=== PATIENT | male | born 1975 | race American Indian/Alaskan Native ===

== ENCOUNTER 2019-11-30 08:10 | Day surgery (SDC) | payer OTHER ==
[~2019-11-30 08:10] MED LIST: IOHEXOL 300 MG/ML 50ML IV ONE
[2019-11-30] MEDS ORDERED: fentaNYL 100 MCG/2 ML INJ IV PRN (09:11)
--- NOTE | 2019-11-30 09:11 | Anesthesia Consultation ---
Anesthesia Consult and Med Hx Date of service: 11/30/19 - Airway Anesthetic Teeth Evaluation: Good ROM Head & Neck: Adequate Mental/Hyoid Distance: Adequate Mallampati Class: Class II Intubation Access Assessment: Probably Good - Pulmonary Exam CTA: Yes - Cardiac Exam Cardiac Exam: RRR - Pre-Operative Health Status ASA Pre-Surgery Classification: ASA3 Proposed Anesthetic Plan: General - Pulmonary Hx Smoking: No Hx Respiratory Symptoms: No Hx Sleep Apnea: Yes (noncompliant with CPAP) - Cardiovascular System Hx Hypertension: Yes Hx Heart Attack/AMI: No Hx Percutaneous Transluminal Coronary Angioplasty (PTCA): No Hx Cardia Arrhythmia: No - Central Nervous System CVA: No Hx Back Pain: Yes Hx Psychiatric Problems: Yes (anxiety) - Gastrointestinal Hx Gastroesophageal Reflux Disease: No - Endocrine Hx End Stage Renal Disease: Yes (last HD 11/28/2019) Hx Liver Disease: No Hx Insulin Dependent Diabetes: No Hx Non-Insulin Dependent Diabetes: No Hx Thyroid Disease: No - Other Systems Hx Obesity: No - Additional Comments Anesthesia Medical History Comments: No hx anesthetic complications.
--- NOTE | 2019-11-30 09:11 | Anesthesia Day of Surgery ---
Anesthesia Day of Surgery - Day of Surgery Patient Examined: Yes Patient H&P Reviewed: Yes Patient is NPO: Yes
[2019-11-30] MEDS ORDERED: SODIUM CHLORIDE 0.9% 1000 ML 1,000 ML IV SCH (09:15)
[2019-11-30] MEDS ORDERED: fentaNYL 100 MCG/2 ML INJ ONE (09:58)
[2019-11-30] MEDS ORDERED: LIDOCAINE MPF (2%) 20 MG/1 ML VIAL 5 ML ONE (09:58)
[2019-11-30] MEDS ORDERED: PROPOFOL 200 MG/20 ML VIAL IV ONE (09:59)
[2019-11-30] MEDS ORDERED: ceFAZolin/NS 1 GM/50 ML 1 GM/50 ML BAG IV NR (10:00)
[2019-11-30] MEDS ORDERED: IOHEXOL 300 MG/ML 50ML IV ONE (11:00)
[2019-11-30] MEDS ORDERED: ONDANSETRON 4 MG/2 ML INJ ONE (11:11)
--- NOTE | 2019-11-30 11:12 | Post Operative Note ---
Date of procedure: 11/30/19 Pre-op diagnosis: hematuria Post-op diagnosis: same Findings: large kidneys Procedure: cysto rpgs Anesthesia: GETA Surgeon: DAXA JOHNSON Estimated blood loss: minimal Pathology: list (cytology) Specimen disposition: to lab Condition: stable Disposition: PACU
--- NOTE | 2019-11-30 11:13 | Discharge Summary ---
Short Stay Discharge Plan Activity: other (no straining ) Weight Bearing Status: Full Weight Bearing Diet: low fat, low cholesterol, low salt Durable Medical Equipment Needed Upon Discharge: other (d/c guzman in rr if clear ) Follow up with: [facility] [Primary Care Provider] - 7 Days DAXA JOHNSON MD [Staff Physician] - 14 Days
[2019-11-30] MEDS ORDERED: MEPERIDINE 25 MG/1 ML INJ ONE (11:32)
[2019-11-30] MEDS ORDERED: MEPERIDINE 25 MG/1 ML INJ IV PRN (11:34)
--- NOTE | 2019-11-30 11:54 | Fluoroscopy Report ---
FL retrograde urography INDICATION / CLINICAL INFORMATION: GROSS HEMATURIA. COMPARISON: None available. FINDINGS: Bilateral retrograde ureterography was performed. Extrinsic compression of right renal pelvis/proxima l ureter results in dilatation. This may be due to crossing vessels. Fluoroscopy time: 28 seconds. Fluoroscopic images: 6. Signer Name: Geoffrey Alexandre MD Signed: 11/30/2019 11:50 AM Workstation Name: [id number]
[2019-11-30 12:48] VITALS: BP 142/95
--- NOTE | 2019-11-30 12:56 | Cat Scan Report ---
CT ABDOMEN AND PELVIS WITHOUT CONTRAST INDICATION: Gross hematuria. COMPARISON: Retrograde urography from earlier today. TECHNIQUE: Axial, coronal and sagittal CT imaging of the abdomen and pelvis was performed without co ntrast. Lack of intravenous contrast limits evaluation of the vascular and solid organs. All CT sca ns at this location are performed using CT dose reduction for ALARA by means of automated exposure co ntrol. FINDINGS: LOWER CHEST: There is bibasilar atelectasis. The heart is mildly enlarged without a significant peric ardial effusion. A catheter is partially visualized terminating at the cavoatrial junction. No additi onal significant abnormality. LIVER: Numerous cysts are seen throughout the liver without an additional significant abnormality. BILIARY: No significant abnormality. PANCREAS: No significant abnormality. SPLEEN: No significant abnormality. ADRENALS: No significant abnormality. KIDNEYS AND URETERS: The kidneys are enlarged and contain numerous cysts without a distinct suspiciou s lesion. No stones are identified. Previously administered contrast remains along the renal collecti ng systems. GI TRACT: No significant abnormality of the stomach, small bowel or colon. Unremarkable appendix. PERITONEUM: No free fluid. No free air. No fluid collection. LYMPH NODES: No significant adenopathy. VASCULATURE: No significant abnormality. URINARY BLADDER: Drained by a Alcant[place] catheter. REPRODUCTIVE ORGANS: No significant abnormality. ADDITIONAL FINDINGS: None. SKELETAL SYSTEM: No significant abnormality. IMPRESSION: 1. No acute abnormality of the abdomen or pelvis. 2. Findings consistent with polycystic kidney disease. Signer Name: Jose Bowen MD Signed: 11/30/2019 12:52 PM Workstation Name: [id number]
--- NOTE | 2019-11-30 14:13 | Post Anesthesia Evaluation ---
- Post Anesthesia Evaluation Patient Participated: Yes Airway Patent: Yes Stable Respiratory Function: Yes Nausea/Vomiting: No Temp > 96.8F: Yes Pain Manageable: Yes Adequeate Hydration: Yes Anesthesia Complications: No
--- NOTE | 2019-12-01 01:53 | Operative Report ---
PREOPERATIVE DIAGNOSES: Hematuria, renal failure. POSTOPERATIVE DIAGNOSES: Hematuria, renal failure with polycystic kidneys. PROCEDURE: Cystoscopy, retrograde. SURGEON: Dr. Araiza. ANESTHESIA: General. FINDINGS: This is a gentleman with gross hematuria. He has a history of polycystic kidneys and renal failure, now presents for cystoscopy. DESCRIPTION OF PROCEDURE: The patient was brought to the outpatient operating table. Following induction of anesthesia, placed in lithotomy position, prepped and draped in usual sterile fashion. Cystourethroscopy showed no bladder tumors. The urethra was normal. Retrograde showed small orifices with medial deviation upper right ureter from renal masses. The kidneys were quite large with splaying of the calices bilaterally. There were no persistent filling defects that could be identified, but the kidneys were huge. The patient tolerated the procedure well. No significant bleeding, no blood from the orifice. He was brought to recovery room in stable condition. JOB# [id number] ELLEN/DOMINICK
== END 2019-11-30 13:20 | disposition home or self-care (01) ==
LOC: OR 08:10
PROVIDERS: ATTEND Urology
DX: R31.0 Gross hematuria (principal); Q61.3 Polycystic kidney, unspecified; I12.0 Hypertensive chronic kidney disease with stage 5 chronic kidney disease or end stage renal disease; N18.6 End stage renal disease; E78.00 Pure hypercholesterolemia, unspecified; G47.30 Sleep apnea, unspecified; F41.9 Anxiety disorder, unspecified; Z98.890 Other specified postprocedural states; Z99.2 Dependence on renal dialysis; Z79.899 Other long term (current) drug therapy
CPT/HCPCS: 36415; 52005; 74176; 74420; 80048; 88112; C1758; J0690; J2175; J2405; J2704; J3010; J7030; Q9967